=== PATIENT | female | born 1990 ===

== ENCOUNTER 2023-05-28 06:14 | Inpatient (IN) | payer OTHER ==
[~2023-05-28] VITALS: Ht 165.1 cm; Wt 76.2 kg
[2023-05-28] MEDS ORDERED: PRENATAL TABLE1 EAC4 PO (06:30)
[2023-05-28 07:09] LABS: PH,URINE 6.5 (5.0-8.0); URINE APPEARANCE Clear; URINE BILIRRUBIN Negative (NEGATIVE); URINE BLOOD Negative; URINE COLOR Yellow; URINE GLUCOSE Negative (NEGATIVE); URINE LEUKOCYTE Trace; URINE NITRATE Negative; URINE PROTEIN Negative (NEGATIVE); URINE UROBILINOGEN 0.2 E.U./dl
[2023-05-28 07:13] LABS: URINE BACTERIA 3007.2 uL (0.0-1933); URINE RBC 8.1 uL (0.0-20.8); URINE WBC 47.2 uL (0.0-23.2)
[2023-05-28 07:24] LABS: HEMATOCRIT 35.8 % (36.0-45.00); HEMOGLOBIN 12.3 g/dL (12.0-15.00); MEAN CELL VOLUME 91.4 fL (80.00-100.00); MEAN CORPUSCULAR HEMOGLOBIN 31.4 pg (27.00-32.0); MEAN CORPUSCULAR HGB CONC 34.3 g/dl (32.0-36.0); PLATELET COUNT 193 K/uL (150-450); RED BLOOD COUNT 3.92 M/uL (4.00-6.00); RED CELL DISTRIBUTION WIDTH 13.7 % (11.5-14.5)
[2023-05-28 07:41] LABS: INR 0.97; PROTHROMBIN TIME 10.2 SECONDS (9.0-11.5)
[2023-05-28 18:52] LABS: ABG PH 7.353 (7.35-7.45); ABG PO2 43.7 mmHg (80-100); ABG pCO2 41.9 mmHg (35-45); BASE EXCESS -2.7 mmol/l; BICARBONATE 22.8 mmol/l (23-25); SaO2 76.5 %; Tco2 24.1 mmol/l; o2 21 %
[2023-05-29 08:02] LABS: HEMATOCRIT 32.6 % (36.0-45.00); HEMOGLOBIN 11.4 g/dL (12.0-15.00); MEAN CELL VOLUME 91.3 fL (80.00-100.00); MEAN CORPUSCULAR HEMOGLOBIN 31.8 pg (27.00-32.0); MEAN CORPUSCULAR HGB CONC 34.9 g/dl (32.0-36.0); PLATELET COUNT 214 K/uL (150-450); RED BLOOD COUNT 3.57 M/uL (4.00-6.00); RED CELL DISTRIBUTION WIDTH 13.3 % (11.5-14.5)
== END 2023-05-30 14:46 | disposition home or self-care (01) | DRG 807 ==
LOC: LDR 06:14 → OB/GYN 18:09
PROVIDERS: ADMIT Obstetrics & Gynecology; ATTEND Obstetrics & Gynecology
PROC: 10E0XZZ Delivery of Products of Conception, External Approach (ICD-10-PCS; principal; 2023-05-28)
PROC: 0UQG7ZZ Repair Vagina, Via Natural or Artificial Opening (ICD-10-PCS; 2023-05-28)
PROC: 4A1HXCZ Monitoring of Products of Conception, Cardiac Rate, External Approach (ICD-10-PCS; 2023-05-28)
DX: O71.4 Obstetric high vaginal laceration alone (principal); Z37.0 Single live birth; Z3A.39 39 weeks gestation of pregnancy; Z20.822 Contact with and (suspected) exposure to COVID-19